=== PATIENT | male | born 1995 | race American Indian/Alaskan Native ===

== ENCOUNTER 2020-02-08 23:59 | Emergency (ER) | payer MEDICAID, OTHER ==
[2020-02-08] MEDS: Sodium Chloride 0.9% 1,000 ML IV ONE (23:41)
[2020-02-09 00:04] LABS: PTT,PARTIAL THROMBOPLSTIN TIME 22.6 SEC (22.0-34.0)
[2020-02-09 00:17] LABS: ANION GAP 22.3 mEq/L (7-13); CHLORIDE,CL 103 mmol/L (98-107); SODIUM,NA 141 mmol/L (136-145)
[2020-02-09] MEDS: Morphine 2 MG/ML SYRINGE IVPUSH ONE (00:25)
[2020-02-09] MEDS: Piperacillin/Tazobactam 3.375 GM in Sodium Chloride 0.9% 100 ML IV ONE (00:28)
[2020-02-09] MEDS: Sodium Chloride 0.9% 1,000 ML IV ONE (00:31)
[2020-02-09] MEDS: Iopamidol 612 MG/ML 100 ML Bottle IVPUSH ONE (00:32)
[2020-02-09] MEDS: Diphtheria,Pertussis(Acell),Tetanus Vaccine 0.5 ML SDV IM ONE (00:35)
[2020-02-09] MEDS: Sodium Chloride 0.9% 500 ML IV STA (00:36)
[2020-02-09] MEDS: fentaNYL 100 MCG/2 ML SDV IVPUSH ONE (00:52)
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
== END 2020-02-09 00:59 ==
LOC: DL.ED 23:59
DX: S22.31XB Fracture of one rib, right side, initial encounter for open fracture (principal); S31.010A Laceration without foreign body of lower back and pelvis without penetration into retroperitoneum, initial encounter; S31.119A Laceration without foreign body of abdominal wall, unspecified quadrant without penetration into peritoneal cavity, initial encounter; S10.11XA Abrasion of throat, initial encounter; R00.0 Tachycardia, unspecified; Z23 Encounter for immunization; Y04.0XXA Assault by unarmed brawl or fight, initial encounter
CPT/HCPCS: 36415; 71260; 74177; 80053; 80307; 82150; 83690; 85025; 85610; 85730; 86850; 86900; 86901; 86920; 86922; 90471; 90715; 96365; 96375; 99285; J2270; J2543; J3010; J7030; J7050; Q9967